=== PATIENT | female | born 1960 | race African-American/Black ===

== ENCOUNTER → 2016-09-16 | Day surgery (SDC) | payer OTHER ==
--- NOTE | 2016-09-17 13:35 | OP ---
DATE OF OPERATION: 09/16/2016 PREOPERATIVE DIAGNOSIS: Abnormal left mammography. POSTOPERATIVE DIAGNOSIS: Abnormal left mammography. PROCEDURE PERFORMED: Left breast stereotactic needle biopsy with clips x2. SURGEON: Ada Tidwell MD ANESTHESIA: Local. COMPLICATIONS: None. DISPOSITION: Stable at the end of the procedure. INDICATIONS FOR PROCEDURE: The patient underwent a routine screening mammography that noted 2 areas of cluster microcalcifications in the left upper outer and left retroareolar areas. There were 3 areas, but one was more suspicious than the others, that was the most anterior. The recommendation is a stereotactic needle biopsy of two of these areas. The procedure was discussed with her, including the need for clips. DESCRIPTION OF PROCEDURE: The patient was brought to [facility] and laid prone on the lorad table. Using the cranial approach, first the upper outer, slightly posterior calcifications were identified. A sterile prep was obtained. A target was chosen. There was a positive stroke margin. Using Betadine and 1% lidocaine, a 10-gauge Suros device was used to take several cores from this area. The cores showed calcification within them. These were handled with the usual calcification protocol. A T-shaped clip was applied on the area. Hemostasis was assured with pressure. Next, the calcifications in the retroareolar location were identified. A sterile prep was obtained. A target was chosen. There was a positive stroke margin. Using Betadine and 1% lidocaine, a 10-gauge Suros device was used to take several cores from this area. The cores showed calcification within them. These were handled with the usual calcification protocol. A cylinder-shaped clip was applied on the area. Hemostasis was assured with direct pressure. Steri-Strips were used to close both incisions. She tolerated the procedure well and left the breast imaging center in good condition. ADA TIDWELL M.D. [id number] MTDD
--- NOTE | 2016-09-18 11:44 | PATH ---
Surgical Pathology Report Patient Name: SURGEONYOVANNY [facility]. Rec. #: [id number] /Age/Gender: 1960 (Age: 55) / F Account: [id number] Location: [facility] Taken: 09/16/2016 Received: 09/16/2016 Reported: 09/18/2016 Physicians: Ada Patterson M.D. Specimen(s) Received A: LEFT BREAST SPECIMEN -SITE 1- UPPER OUTER (POSTERIOR) WITH CALCIFICATIONS B: LEFT BREAST SPECIMEN -SITE 1- UPPER OUTER (POSTERIOR) WITHOUT CALCIFICATIONS C: LEFT BREAST SPECIMEN -SITE 2- RETROAREOLAR - WITH CALCIFICATIONS D: LEFT BREAST SPECIMEN -SITE 2- RETROAREOLAR- WITHOUT CALCIFICATIONS Clinical History Microcalcification, suspicious Site 1 = upper outer posterior Site 2 = retroareolar Final Diagnosis A. LEFT BREAST, SITE #1 UPPER OUTER POSTERIOR WITH CALCIFICATION, STEREOTACTIC NEEDLE CORE BIOPSY: DUCTAL CARCINOMA IN SITU (DCIS), INTERMEDIATE NUCLEAR GRADE, CRIBRIFORM PATTERN WITH CENTRAL NECROSIS AND ASSOCIATED CALCIFICATION. REMAINING BREAST TISSUE SHOWS FIBROCYSTIC CHANGES INCLUDING USUAL DUCTAL HYPERPLASIA (UDH), STROMAL FIBROSIS, AND DUCTAL DILATATION. Results of Estrogen Receptor (ER) and Progesterone Receptor (UT) studies performed at [facility] are as follows: ER (clone 6F11 mouse monoclonal antibody by Leica): 100% nuclear staining with strong intensity (Positive). UT (clone16 mouse monoclonal antibody by Leica) : ~80% nuclear staining with strong intensity (Positive). B. LEFT BREAST, SITE #1 UPPER OUTER POSTERIOR WITHOUT CALCIFICATION, STEREOTACTIC NEEDLE CORE BIOPSY: DUCTAL CARCINOMA IN SITU (DCIS), INTERMEDIATE NUCLEAR GRADE, CRIBRIFORM PATTERN WITH CENTRAL NECROSIS AND ASSOCIATED CALCIFICATION. REMAINING BREAST TISSUE SHOWS FIBROCYSTIC CHANGES INCLUDING USUAL DUCTAL HYPERPLASIA (UDH), STROMAL FIBROSIS, AND DUCTAL DILATATION. C. LEFT BREAST, SITE #2 RETROAREOLAR WITH CALCIFICATION, STEREOTACTIC NEEDLE CORE BIOPSY: DUCTAL CARCINOMA IN SITU (DCIS), INTERMEDIATE NUCLEAR GRADE, CRIBRIFORM AND MICROPAPILLARY PATTERNS WITH CENTRAL NECROSIS AND ASSOCIATED CALCIFICATION. REMAINING BREAST TISSUE WITH FIBROCYSTIC CHANGES INCLUDING USUAL DUCTAL HYPERPLASIA (UDH), STROMAL FIBROSIS, DUCTAL DILATATION, AND CYSTIC APOCRINE METAPLASIA. Results of Estrogen Receptor (ER) and Progesterone Receptor (UT) studies performed at [facility] are as follows: ER (clone 6F11 mouse monoclonal antibody by Leica): 100% nuclear staining with strong intensity (Positive). UT (clone16 mouse monoclonal antibody by Leica) : ~80% nuclear staining with strong intensity (Positive). D. LEFT BREAST, SITE #2 RETROAREOLAR WITHOUT CALCIFICATION, STEREOTACTIC NEEDLE CORE BIOPSY: DUCTAL CARCINOMA IN SITU (DCIS), INTERMEDIATE NUCLEAR GRADE, CRIBRIFORM AND MICROPAPILLARY PATTERNS WITH CENTRAL NECROSIS AND ASSOCIATED CALCIFICATION. REMAINING BREAST TISSUE WITH FIBROCYSTIC CHANGES INCLUDING STROMAL FIBROSIS AND DUCTAL DILATATION. Positive and negative controls (internal if applicable) show appropriate results. Formalin fixation and cold ischemic times are within current ASCO/CAP recommendations for ER, UT and Her2 testing. Comment: This case was discussed with Dr. Patterson on September 18, 2016. Electronically Signed Isac Fernandes M.D. Gross Description A. Received in formalin, labeled "site 1 upper outer posterior left breast with calcifications," are 3 palm-yellow, cylindrical portions of fibroadipose tissue ranging from 2.3-2.9 cm. in length and averaging 0.3 cm. in diameter. The specimen is submitted in toto in one cassette. B. Received in formalin, labeled "site 1 upper outer posterior left breast without calcifications," are 4 palm-yellow, cylindrical portions of fibroadipose tissue ranging from 1.7-3.0 cm. in length and averaging 0.3 cm. in diameter. The specimen is submitted in toto in one cassette. C. Received in formalin labeled "site 2 retroareolar left breast with calcifications," is a 2.3 x 2.3 x 0.3 cm aggregate of multiple palm-yellow, irregular to cylindrical portions of fibroadipose tissue. The formalin is filtered and the specimen is entirely submitted in one cassette. D. Received in formalin labeled "site 2 retroareolar left breast without calcifications," is a 1.4 x 1.1 x 0.3 cm aggregate of multiple palm-yellow, irregular to cylindrical portions of fibroadipose tissue. The formalin is filtered and the specimen is entirely submitted in one cassette. Time to formalin fixation: Approximately 5 minutes Total formalin fixation time: Approximately 6 hours. 09/16/201609/16/2016
== END | disposition home or self-care (01) ==
LOC: FMAMMOTONE 09:54
PROVIDERS: ATTEND Surgery
PROC: 0HBU3ZX Excision of Left Breast, Percutaneous Approach, Diagnostic (ICD-10-PCS; principal; 2016-09-16)
DX: D05.12 Intraductal carcinoma in situ of left breast (principal); N60.82 Other benign mammary dysplasias of left breast; N60.32 Fibrosclerosis of left breast; N64.89 Other specified disorders of breast; R92.1 Mammographic calcification found on diagnostic imaging of breast
CPT/HCPCS: 19081; 19082; 19284; 87899; 88305-TC; 88342-TC; A4648

== ENCOUNTER → 2016-11-25 | Day surgery (SDC) | payer OTHER ==
[~2016-11-25] MED LIST: KETOROLAC TROMETHAMINE 30 MG/1 ML VIAL IVPUSH PRN; LACTATED RINGERS SOLUTION 1,000 ML IV SCH; LIDOCAINE HCL 1%, 10 MG/ML (50 mL VIAL) IJ ONE; ONDANSETRON 4 MG/2 ML VIAL IVPUSH PRN; ceFAZolin SODIUM 1 GM VIAL IVPB ONE; oxyCODONE HCL 5 MG TABLET PO PRN
[2016-11-25 10:45] VITALS: BMI 30.8
[2016-11-25 18:48] VITALS: TEMP 97.8
[2016-11-25 20:40] VITALS: BP 139/80; PULSE 62
--- NOTE | 2016-11-26 11:14 | OP ---
DATE OF OPERATION: 11/25/2016 PREOPERATIVE DIAGNOSIS: Left breast ductal carcinoma in situ, multifocal. POSTOPERATIVE DIAGNOSIS: Left breast ductal carcinoma in situ, multifocal. PROCEDURE: Left breast [id number] lumpectomy with primary reconstruction. SURGEON: Ada Tidwell MD ANESTHESIA: General. ESTIMATED BLOOD LOSS: Minimal. COMPLICATIONS: None. This was a sterile procedure. INDICATION FOR PROCEDURE: Patient presented with a screening mammogram that noted 2 areas of microcalcifications behind the left nipple-areolar complex. Biopsy of both of these showed DCIS. We had a lengthy discussion, and the decision was to go ahead with a lumpectomy to encompass both these areas as a sentinel lumpectomy behind the left nipple-areolar complex. The procedure was discussed with her including the possibility of finding an invasive carcinoma or the requirement of a re-excision lumpectomy for better margins. PROCEDURE IN DETAIL: Patient was brought to [facility], taken to Breast Imaging where 2 clips behind the left nipple/areolar complex were localized with 2 different wires, and she was then brought to the operating room. After IV sedation and IV antibiotics, the left breast was prepped with Betadine and anesthetized the area with 1% lidocaine. However, she kept moving. Therefore, at this point, the anesthesia was changed to an LMA. A periareolar incision was made from the 12 o'clock to the 6 o'clock location of the left breast, and both the wires were used to get down to the area which was excised en bloc, tagged with a long stitch lateral, short stitch superior, sent as an en bloc lumpectomy. I took a new medial margin and tagged it with a stitch at the old margin and sent to Pathology as well. I also felt that the tissue behind the nipple-areolar complex felt firm; so, this would be a new anterior margin, although this lumpectomy was taken separately with a long stitch lateral, short stitch superior and sent to Pathology for permanent section. The lumpectomy specimen was sent for specimen radiograph, and that noted 1 of the clips, but the second clip could not be seen. However, the entire wire was intact and I do feel that this area encompassed where the clip was and it is possible that it fell out. The specimen was then sent to Pathology for permanent section. Hemostasis was assured with electrocautery. There was a wide defect left from this big lumpectomy for multifocal DCIS. Therefore, superior, inferomedial, and lateral flaps were raised, and a tissue transfer procedure was performed to fill in the cavity. The parenchyma was approximated in 3 layers of interrupted 2-0 Vicryl. Skin approximated with interrupted 3-0 Vicryl and a running 4-0 Biosyn. A sterile dressing of Steri-Strips, Tegaderm, and 4 x 4's applied. She tolerated the procedure well, was extubated on the operating room table, taken to recovery in good condition. ADA TIDWELL M.D. [id number]
--- NOTE | 2016-11-30 15:25 | PATH ---
Surgical Pathology Report Patient Name: SURGEONYOVANNY [facility]. Rec. #: [id number] /Age/Gender: 1960 (Age: 56) / F Account: [id number] Location: [facility] SURGICAL Taken: 11/25/2016 Received: 11/26/2016 Reported: 11/30/2016 Physicians: Ada Patterson M.D. Specimen(s) Received A: LEFT BREAST LUMPECTOMY B: LEFT BREAST NEW MEDIAL MARGIN C: LEFT BREAST TISSE BEHIND NIPPLE Clinical History Left breast ductal carcinoma in situ Final Diagnosis A. BREAST, LEFT, LUMPECTOMY: DUCTAL CARCINOMA IN SITU (DCIS), INTERMEDIATE NUCLEAR GRADE, CRIBRIFORM TYPE WITH FOCAL NECROSIS AND MICROCALCIFICATIONS. DCIS EXTENT: DCIS IS PRESENT ON 5 OF 22 EXAMINED SLIDES WITH THE GREATEST EXTENT AND ONE SLIDE OF 0.5 CM. SURGICAL RESECTION MARGINS: DCIS FOCALLY ABUTS MEDIAL MARGIN OF THIS SPECIMEN AND IS FOCALLY <1.0 MM FROM THE LATERAL MARGIN OF THIS SPECIMEN (ALSO REFER TO PART B). PRIOR SURGICAL BIOPSY SITE PRESENT. SURROUNDING BREAST TISSUE: FIBROADENOMA (0.5 CM) AND FIBROCYSTIC CHANGE WITH FOCAL USUAL DUCTAL HYPERPLASIA, FOCAL COLUMNAR CELL CHANGE, CYSTIC APOCRINE METAPLASIA AND STROMAL FIBROSIS. PATHOLOGIC STAGING: REFER TO CHECKLIST BELOW. RECEPTOR STATUS: REFER TO CHECKLIST BELOW. B. BREAST, LEFT, MEDIAL MARGIN, EXCISION: DUCTAL CARCINOMA IN SITU (DCIS), INTERMEDIATE NUCLEAR GRADE, CRIBRIFORM TYPE, WITH FOCAL NECROSIS AND MICROCALCIFICATIONS. DCIS IS PRESENT ON 5 OF 9 EXAMINED SLIDES, WITH THE GREATEST EXTENT ON ONE SLIDE OF 1.1 CM. DCIS FOCALLY EXTENDS TO THE NEW MEDIAL RESECTION MARGIN. C. BREAST, LEFT, TISSUE BEHIND NIPPLE, LUMPECTOMY: DUCTAL CARCINOMA IN SITU (DCIS), CRIBRIFORM AND SOLID TYPES, WITH FOCAL NECROSIS AND MICROCALCIFICATIONS. DCIS EXTENT: DCIS IS PRESENT ON 4 OF 9 EXAMINED SLIDES VISIT GREATEST EXTENT AND ONE SLIDE OF 1.7 CM. SURGICAL RESECTION MARGINS: DCIS EXTENDS TO ANTERIOR AND POSTERIOR (DEEP) MARGINS OF THIS SPECIMEN AND IS FOCALLY <1.0 MM FROM THE MEDIAL MARGIN OF THIS SPECIMEN. PRIOR BIOPSY SITE PRESENT. SURROUNDING BREAST TISSUE: FIBROCYSTIC CHANGE WITH CYSTIC APOCRINE METAPLASIA, DUCT DILATATION AND STROMAL FIBROSIS. PATHOLOGIC STAGING: REFER TO CHECKLIST BELOW. RECEPTOR STATUS: REFER TO CHECKLIST BELOW. Comment: The case was discussed with Dr. Patterson on 11/30/16. Comments DCIS of Breast: Surgical Pathology Cancer Case Summary Based on AJCC/UICC TNM, 7th edition Procedure _x_ Excision with image-guided localization Lymph Node Sampling _x_ None Specimen Laterality _x_ Left Estimated size (extent) of DCIS (greatest dimension using gross and microscopic evaluation part C): Number of blocks with DCIS: 4 (part C) Number of blocks examined: 9 (part C) Greatest extent on one slide: 1.7 cm (part C) Nuclear Grade _x_ Grade II (intermediate) Necrosis _x_ Present, focal (small foci or single cell necrosis) Microcalcifications _x_ Present in DCIS Margins _x_ Margin close to (<1 mm) DCIS: lateral (part A), medial (part C) _x_ Margins positive for DCIS: new medial (part B), anterior, deep (part C) Pathologic Staging (pTNM): pTis(DCIS) pNX Biomarker Studies Results of ER and RI studies performed on prior biopsy (D10, parts A and C) at [facility] are as follows: ER (clone 6F11 mouse monoclonal antibody by Leica): 100% nuclear staining with strong intensity (Positive). RI (clone16 mouse monoclonal antibody by Leica): ~80% nuclear staining with strong intensity (Positive). Positive and negative controls (internal if applicable) showed appropriate results. Formalin fixation and cold ischemic times were within current ASCO/CAP recommendations for ER, RI and Her2 testing. Electronically Signed Aníbal Mcadams M.D. Gross Description A. Received fresh on an AccuGrid, labeled "left breast lumpectomy" is a 10.3 x 6.2 x 2.0 cm. palm-yellow, irregular, portion of fibroadipose tissue with 2 needle localization wires present. There is a short suture marking the superior aspect and a long suture marking the lateral aspect, per the surgeon. There is no skin or nipple present. The specimen is inked as follows: Superior blue; inferior green; lateral and anterior red; medial yellow; deep black. The specimen is serially sectioned from anterior to deep. Sectioning reveals a focus of hemorrhage, consistent with a previous biopsy site, surrounded by foci of white fibrous tissue. No definite mass is associated with the hemorrhage. There is a second focus of hemorrhage, 2 cm deep to the first site. Boiler Setter sections are submitted in 22 cassettes as follows: 1-3-first biopsy site with medial and lateral margins; 9-0-ikvpnejbwc fibrous tissue surrounding first biopsy site (4-medial and lateral margins; 5-medial, lateral and inferior margins); 6-8-second hemorrhagic focus with with medial and lateral margins; 3-11-svwamqwasy fibrous tissue with medial and lateral margins; 19-superior margin; 20-inferior margin; 21-anterior margin; 22-deep margin. Time to fixation: not given Total formalin fixation time: ~10 hours B. Received in formalin labeled "left breast new medial margin" is a 6.8 x 3.8 x 1.0 cm irregular portion of fibroadipose tissue with a suture marking the old margin, per the surgeon. The new margin is inked blue and the specimen is serially sectioned. Boiler Setter sections are sequentially submitted in 9 cassettes. C. Received in formalin, labeled "left breast tissue behind nipple" is a 4.2 x 2.4 x 1.4 cm. palm-yellow, irregular, portion of fibroadipose tissue. There is no needle localization wire present. There is a short suture marking the superior aspect and a long suture marking the lateral aspect, per the surgeon. There is no skin or nipple present. The specimen is inked as follows: superior and lateral blue; inferior green; medial yellow; anterior red; deep black. The specimen is serially sectioned from superior to inferior. Sectioning reveals a focus of hemorrhage, likely consistent with a previous biopsy site surrounded by white fibrous tissue. No definitive mass is identified. The specimen is entirely and sequentially submitted in 9 cassettes (superior tip in cassette 1, inferior tip in cassette 9 and previous biopsy site in cassettes 5-7). Time to fixation: not given Total formalin fixation time: ~10 hours [facility]
== END | disposition home or self-care (01) ==
LOC: JASU-SURG 10:25
PROVIDERS: ATTEND Surgery
PROC: 0HBU0ZZ Excision of Left Breast, Open Approach (ICD-10-PCS; principal; 2016-11-25 14:00)
DX: D05.12 Intraductal carcinoma in situ of left breast (principal)
CPT/HCPCS: 19281; 19282; 88307-TC; 94760

== ENCOUNTER 2017-01-05 05:21 | Day surgery (SDC) | payer OTHER ==
[2016-12-29 13:14] VITALS: BMI 31.3
[2017-01-05] MEDS ORDERED: ceFAZolin SODIUM 1 GM VIAL ONE (12:01)
[2017-01-05] MEDS ORDERED: ceFAZolin SODIUM 1 GM VIAL IVPB ONE (12:44)
[2017-01-05] MEDS ORDERED: DEXAMETHASONE SOD PHOSPHATE 4 MG/1 ML VIAL ONE (13:25)
[2017-01-05] MEDS ORDERED: ACETAMINOPHEN 500 MG TABLET (FP) PO PRN (13:53)
[2017-01-05] MEDS ORDERED: ONDANSETRON 4 MG/2 ML VIAL IVPUSH PRN (13:53)
[2017-01-05] MEDS ORDERED: LACTATED RINGERS SOLUTION 1,000 ML IV SCH (14:00)
[2017-01-05 15:13] VITALS: TEMP 97.5
[2017-01-05] MEDS ORDERED: oxyCODONE HCL 5 MG TABLET PO ONE (15:25)
[2017-01-05] MEDS ORDERED: oxyCODONE HCL 5 MG TABLET ONE (15:31)
[2017-01-05 17:55] VITALS: BP 143/90; PULSE 62
--- NOTE | 2017-01-07 15:57 | PATH ---
Surgical Pathology Report Patient Name: SURGEONYOVANNY [facility]. Rec. #: [id number] /Age/Gender: 1960 (Age: 56) / F Account: [id number] Location: [facility] SURGICAL Taken: 01/05/2017 Received: 01/06/2017 Reported: 01/07/2017 Physicians: Ada Patterson M.D. Specimen(s) Received A: LEFT BREAST LUMPECTOMY B: LEFT BREAST NEW ANTERIOR MARGIN Clinical History DCIS, left beast Final Diagnosis A. BREAST, LEFT, REEXCISION LUMPECTOMY: FOCAL RESIDUAL DUCTAL CARCINOMA IN SITU (DCIS), INTERMEDIATE NUCLEAR GRADE, CRIBRIFORM TYPE, PRESENT ON 1 OF 11 EXAMINED SLIDES, WITH THE GREATEST EXTENT OF 0.4 CM. SURGICAL RESECTION MARGINS: NEGATIVE FOR DCIS, CLOSEST RESECTION MARGIN (LATERAL) IS >1.0 CM FROM DCIS. EXTENSIVE PRIOR SURGICAL SITE CHANGES. SURROUNDING BREAST TISSUE WITH FIBROCYSTIC CHANGE WITH FOCAL ADENOSIS, DUCT DILATATION AND STROMAL FIBROSIS. B. BREAST, LEFT, NEW ANTERIOR MARGIN, EXCISION: BENIGN BREAST TISSUE WITH FIBROCYSTIC CHANGE WITH DUCTS DILATATION, CYST FORMATION AND FOCAL STROMAL FIBROSIS. NO INVASIVE OR IN SITU CARCINOMA IDENTIFIED. Electronically Signed Aníbal Mcadams M.D. Gross Description A. Received in formalin, labeled "left breast lumpectomy" is a 8.0 x 5.5 x 2.9 cm portion palm-yellow fibrofatty tissue with a long stitch designating lateral and short stitch designating superior margins per surgeon. The specimen is inked as follows: Superior and lateral margins blue, deep margin black, anterior margin red, medial margin yellow, inferior margin -green. The specimen is serially sectioned from superior to inferior reveal hemorrhagic prior biopsy cavity with surrounding palm-yellow area of fat necrosis. The area is adjacent to the anterior margin of this specimen, approximately 3 mm from the lateral aspect of the specimen, and the furthest from the deep aspect. Television Maintenance Man sections are submitted as follows: 1-6 -sections of the cavity with surrounding tissue and anterior, lateral, and medial margins, 7- lateral margin, 8-inferior margin, 9-10 -deep margin, 11 -medial margin. B. Received in formalin, labeled "left breast new inferior margin" is a 3.5 x 2.5 x 0.7 cm a portion of palm-yellow fibrofatty tissue with a stitch designating new margin per surgeon. The aspect of the stitch is inked blue. The specimen is serially sectioned and submitted entirely in four cassettes. AF/01/06/2017 final/01/06/2017
--- NOTE | 2017-01-12 12:56 | OP ---
DATE OF OPERATION: 01/05/2017 PREOPERATIVE DIAGNOSIS: Left breast ductal carcinoma in situ. POSTOPERATIVE DIAGNOSIS: Left breast ductal carcinoma in situ. PROCEDURE: Left breast re-excision lumpectomy with primary reconstruction. SURGEON: Ada Tidwell MD ANESTHESIA: Paravertebral block and general. ESTIMATED BLOOD LOSS: Minimal. COMPLICATIONS: None. This was a sterile procedure. INDICATION FOR PROCEDURE: Patient had a left lumpectomy for ductal carcinoma in situ, and that showed multiple close and positive margins. My recommendation was re-excision. The procedure was discussed with her. All of her questions answered. PROCEDURE IN DETAIL: Patient was brought to [facility], taken into the operating room, and after paravertebral block was done by the anesthesiologist, we tested the breast, which she seemed to have sensation in it. Therefore, at that point, she was changed to an LMA. The left breast was prepped in the usual sterile fashion. IV antibiotics were given prior to incision. The prior incision in the periareolar outer left breast was sharply reopened, and the lumpectomy cavity was entered. A complete re-excision lumpectomy was performed around the lumpectomy cavity, tied with a long stitch lateral/short stitch superior, sent to Pathology for permanent section. Where she had the second area close to the areola, I took an additional new margin as a new anterior margin with a stitch at the new margin, and this was sent to Pathology for permanent section as well. Hemostasis was assured with electrocautery. There was a wide defect measuring 12 cm x 6 cm. At this point, superior, inferior, medial, and lateral flaps were raised. A tissue transfer procedure was performed, and the parenchyma was approximated in 3 layers of interrupted 2-0 Vicryl, skin approximated with interrupted 3-0 Vicryl running and 4-0 Prolene. A sterile dressing with Tegaderm and 4 x 4's applied. She tolerated the procedure, was taken to recovery in good condition. ADA TIDWELL M.D. [id number]
== END 2017-01-05 17:25 | disposition home or self-care (01) ==
LOC: JASU-SURG 05:21
PROVIDERS: ATTEND Surgery
PROC: 0HBU0ZZ Excision of Left Breast, Open Approach (ICD-10-PCS; principal; 2017-01-05 12:00)
DX: D05.92 Unspecified type of carcinoma in situ of left breast (principal)
CPT/HCPCS: 88307-TC; 94760